=== PATIENT | female | born 1970 | race Two or more races ===

== ENCOUNTER 2022-10-30 21:39 | Emergency (ER) | payer SELFPAY ==
[~2022-10-30] VITALS: Ht 165.1 cm; Wt 83.0 kg
[2022-10-30 21:45] VITALS: O2SAT 100
[2022-10-30] MEDS ORDERED: METOCLOPRAMIDE HCL 10MG/2ML VIAL IV ONE (22:15)
[2022-10-30] MEDS ORDERED: SODIUM CHLORIDE 0.9% 1,000 ML IV ONE (22:15)
[2022-10-30] MEDS ORDERED: ACETAMINOPHEN 325MG TABLET PO STA (22:15)
[2022-10-30] MEDS ORDERED: KETOROLAC 30MG/ML VIAL IV STA (22:15)
[2022-10-30 22:49] LABS: BASOPHILS % 0.3 % (0.0-2.0); EOSINOPHILS % 2.3 % (0.0-5.0); HEMATOCRIT. 39.2 % (36.0-48.0); HEMOGLOBIN. 13.1 g/dL (12.0-16.0); LYMPHOCYTES % 47.2 % (20.0-50.0); MEAN CORPUSCULAR HEMOGLOBIN 27.8 pg (28.0-32.0); MEAN CORPUSCULAR VOLUME 83.4 fL (81.0-99.0); MEAN PLATELET VOLUME 7.4 fl (7.4-10.4); MONOCYTES % 9.4 % (2.0-8.0); NEUTROPHILS % 40.8 % (40.0-76.0); PLATELET 318 x1000/uL (130-400); RED CELL DISTRIBUTION WIDTH 14.6 % (11.6-14.6)
[2022-10-30 23:03] LABS: CHLORIDE 107 mEq/L (98-107)
[2022-10-31] MEDS ORDERED: ACET-2708 MT (00:22)
[2022-10-31 01:10] VITALS: BP 137/70; PULSE 75; RESP 19; TEMP 98.2
== END 2022-10-31 01:11 | disposition home or self-care (01) ==
LOC: ER 21:39
DX: R51.9 Headache, unspecified (principal); I10 Essential (primary) hypertension; E78.00 Pure hypercholesterolemia, unspecified
CPT/HCPCS: 80053; 85025; 36415; 96361; 96374; 96375; 99285; J1885; J2765; J7030; Z7610